=== PATIENT | male | born 1965 | race African-American/Black ===

== ENCOUNTER 2017-10-23 07:56 | Emergency (ER) | payer BC, OTHER ==
[~2017-10-23] VITALS: Ht 180.3 cm; Wt 83.9 kg
[~2017-10-23 07:56] MED LIST: AMBIEN 5 MG TABL5 M1 PO; CARAFATE 11 GM/10 M1 PO; NAPROXEN25 GM MC; NORCO 5-325 TA1 EACH PO; PRILOSEC10 MG PO; TOPROL XL25 MG PO; TOPROL XL50 MG PO; XANAX 0.25 MG0.25 MG PO; ZYRTEC10 M5 PO
[2017-10-23] MEDS ORDERED: NAPROSYN500 MG PO (10:05)
[2017-10-23 10:13] VITALS: BP 122/67
== END 2017-10-23 10:23 | disposition home or self-care (01) ==
LOC: ER 07:56
DX: M79.661 Pain in right lower leg (principal); I10 Essential (primary) hypertension; Z86.718 Personal history of other venous thrombosis and embolism; F10.99 Alcohol use, unspecified with unspecified alcohol-induced disorder; Z88.2 Allergy status to sulfonamides